=== PATIENT | female | born 1995 | race Native Hawaiian/Other Pacific Islander ===

== ENCOUNTER 2020-11-22 10:02 | Emergency (ER) | payer OTHER ==
[~2020-11-22] VITALS: Ht 162.6 cm; Wt 49.9 kg
[2020-11-22 10:02] VITALS: BP 118/96; TEMP 100
== END 2020-11-22 10:45 ==
LOC: ED 10:02
DX: F31.89 Other bipolar disorder (principal); R46.89 Other symptoms and signs involving appearance and behavior
CPT/HCPCS: 99281